=== PATIENT | female | born 1965 | race Caucasian/White ===

== ENCOUNTER 2018-01-03 09:55 | Emergency (ER) | payer OTHER ==
[2018-01-03 10:16] VITALS: BP 156/99; PULSE 80; RESP 16; TEMP 97.9; O2SAT 94
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
== END 2018-01-03 10:33 | disposition home or self-care (01) ==
LOC: CED 09:55
DX: S30.1XXA Contusion of abdominal wall, initial encounter (principal); S93.601A Unspecified sprain of right foot, initial encounter; V49.49XA Driver injured in collision with other motor vehicles in traffic accident, initial encounter; Y92.410 Unspecified street and highway as the place of occurrence of the external cause; Y99.8 Other external cause status; Y93.89 Activity, other specified